=== PATIENT | male | born 1950 | race Caucasian/White ===

== ENCOUNTER 2016-12-07 08:53 | Outpatient (CLI) | payer OTHER ==
--- NOTE | 2016-12-07 09:43 | DIAGNOSTIC IMAGING REPORT ---
PROCEDURE: US ABDOMEN VASCULAR-AAA INDICATION: Former smoker. Abdominal aortic aneurysm screening. TECHNIQUE: Trevizo scale, color Doppler and spectral ultrasound of the abdominal aorta. COMPARISON: CT abdomen/pelvis 08/25/2014. FINDINGS: Moderate atherosclerosis. Aortic diameter: Proximal 2.5 cm, mid 2.5 cm and distal 1.9 cm. Both iliac arteries measure 1.3 cm in diameter. IMPRESSION: 1. Moderate atherosclerosis but no evidence of abdominal aortic aneurysm.
== END 2016-12-07 23:00 ==
LOC: US SRH 08:53
DX: I70.0 Atherosclerosis of aorta (principal)